=== PATIENT | male | born 1980 ===

== ENCOUNTER 2021-10-31 16:22 | Outpatient (REF) | payer SELFPAY ==
[2021-10-31 20:18] LABS: HGB 15.4 g/dL (13.5-17.5); MCH 31.3 pg (27.0-33.0); RBC 4.92 10^6/uL (4.36-5.78)
[2021-10-31 20:20] LABS: HCT 47.1 % (40.0-50.0); MCHC 32.7 % (32.0-36.0); MCV 95.7 fL (80-95); RDW 12.5 % (11.8-14.1); RDW-SD 44.4 fL; WBC 5.22 10^3/uL (4.4-10.8)
[2021-10-31 20:37] LABS: TSH 2.04 uIU/mL (0.36-3.74)
[2021-10-31 21:11] LABS: Platelet Count 114 10^3/uL (130-400)
[2021-11-01 09:52] LABS: Absolute Basophil Count 0.05 10^3/uL (0.0-0.2); Absolute Eosinophil Count 0.33 10^3/uL (0.0-0.7); Absolute Lymphocyte Count 1.47 10^3/uL (1.2-3.4); Absolute Monocyte Count 0.74 10^3/uL (0.1-0.8); Absolute Neutrophil Count 2.86 10^3/uL (1.2-6.7); Basophils % 0.9; Immature Grans % 0.4; Lymphocytes % 26.9; Monocytes % 13.5; Neutrophils % 52.3
[2021-11-01 09:53] LABS: Abs Immature Grans 0.02 10^3/uL (0.0-0.06)
== END 2021-10-31 16:23 | disposition home or self-care (01) ==
LOC: NCHCN 16:22
PROVIDERS: Visit Provider Registered Nurse
DX: R53.83 Other fatigue (principal)
CPT/HCPCS: 80053; 85027; 84443; 85007